=== PATIENT | male | born 1995 | race Hispanic/Latino ===

== ENCOUNTER 2016-04-20 13:18 | Emergency (ER) | payer OTHER ==
[~2016-04-20] VITALS: Ht 182.9 cm; Wt 84.2 kg
[~2016-04-20 13:18] MED LIST: ABILIFY10 MG PO; ABILIFY15 MG PO; AMOXICILLIN875 MG PO; CLONIDINE HCL0.1 MG PO; FOCALIN XR20 MG PO; FOCALIN5 MG; HYDROCODON-ACE1 EAC7 PO; NAPROSYN500 MG PO; NORCO 5/3251 TABLET PO
[2016-04-20 15:37] LABS: AMPHETAMINE NEGATIVE (500 ng/mL); BARBITURATES NEGATIVE (200 ng/mL); BENZODIAZEPINES NEGATIVE (150 ng/mL); COCAINE NEGATIVE (150 ng/mL); INTERNAL CONTROLS VALID? YES; METHADONE NEGATIVE (200 ng/mL); METHAMPHETAMINE NEGATIVE (500 ng/mL); OPIATES (MORPHINE) NEGATIVE (100 ng/mL); OXYCODONE NEGATIVE (100 ng/mL); PHENCYCLIDINE NEGATIVE (25 ng/mL); PROPOXYPHENE NEGATIVE (300 ng/mL); THC CANNABINOIDS PRESUMPTIVE POSITIVE (50 ng/mL); TRICYCLIC ANTIDEPRESSANTS NEGATIVE (300 ng/mL)
[2016-04-20 15:38] LABS: ADD MEDTOX COMMENT Y
[2016-04-20 15:40] LABS: HEMATOCRIT 46.5 % (38.0-50.0); MCH 29.4 PG (29.0-34.0); MCHC 35.5 G/DL (30.0-36.0); MCV 82.7 FL (86-99); MEAN PLAT.VOLUME 10.8 uM^3 (9.0-12.4); PLATELET COUNT 244 K/uL (156-360); RBC DIS.WIDTH-CV 11.7 % (11.8-14.6); RBC DIS.WIDTH-SD 34.6 % (39-53); RED BLOOD COUNT 5.62 M/uL (4.00-5.50); WHITE BLOOD COUNT 11.7 K/uL (4.1-10.2)
[2016-04-20 15:50] LABS: CHLORIDE 104 mEq/L (99-109); POTASSIUM 4.3 mEq/L (3.7-5.4); SODIUM 141 mEq/L (136-147)
[2016-04-20 15:52] LABS: GLUCOSE 96 mg/dL (70-99)
[2016-04-20 15:53] LABS: ANION GAP 8 MEQ/L (2-14)
[2016-04-20 15:55] LABS: SERUM ETHYL ALCOHOL < 10 mg/dL
[2016-04-20 15:56] LABS: GFR ESTIMATE (CALCULATED) > 59 mL/min/
[2016-04-20 15:57] LABS: UREA NITROGEN (BUN) 7 mg/dL (9-23)
[2016-04-20 20:57] VITALS: BP 134/82
== END 2016-04-20 21:00 ==
LOC: EME 13:18
DX: F32.9 Major depressive disorder, single episode, unspecified (principal); D72.829 Elevated white blood cell count, unspecified; S50.811A Abrasion of right forearm, initial encounter; X78.1XXA Intentional self-harm by knife, initial encounter; F12.10 Cannabis abuse, uncomplicated; Z87.442 Personal history of urinary calculi
CPT/HCPCS: 80048; 84999; 85027; 90837; 99281; 99285; G0480; J2405; J3010

== ENCOUNTER 2016-11-11 16:45 | Emergency (ER) | payer OTHER ==
[~2016-11-11] VITALS: Ht 182.9 cm; Wt 79.4 kg
[2016-11-11 17:31] LABS: EOSINOPHIL (%) 0.5 % (0-5); HEMATOCRIT 47.2 % (38.0-50.0); IMMATURE GRANULOCYTE (%) 0.2 % (0.0-0.7); INSTRUMENT ABS NEUTROPHIL CT 6.7 K/uL; LYMPHOCYTE COUNT 1.3 K/uL (1.0-2.8); MCH 28.9 PG (29.0-34.0); MCV 82.8 FL (86-99); MEAN PLAT.VOLUME 10.9 uM^3 (9.0-12.4); MONOCYTE (%) 6.7 % (3-12); MONOCYTE COUNT 0.6 K/uL (0-0.8); NEUTROPHIL (%) 77.1 % (45-76); NEUTROPHIL COUNT 6.7 K/uL (1.8-6.4); PLATELET COUNT 205 K/uL (156-360); RBC DIS.WIDTH-CV 11.7 % (11.8-14.6); RBC DIS.WIDTH-SD 35.1 % (39-53); WHITE BLOOD COUNT 8.7 K/uL (4.1-10.2)
[2016-11-11 17:39] LABS: CHLORIDE 103 mEq/L (99-109); POTASSIUM 3.7 mEq/L (3.7-5.4); SODIUM 141 mEq/L (136-147)
[2016-11-11 17:41] LABS: GLUCOSE 98 mg/dL (70-99)
[2016-11-11 17:42] LABS: ANION GAP 14 MEQ/L (2-14)
[2016-11-11 17:44] LABS: SERUM ETHYL ALCOHOL < 10 mg/dL
[2016-11-11 17:45] LABS: GFR ESTIMATE (CALCULATED) > 59 mL/min/
[2016-11-11 17:46] LABS: UREA NITROGEN (BUN) 7 mg/dL (9-23)
[2016-11-11 18:21] LABS: ADD MIUA? YES; BILIRUBIN SMALL; BLOOD SMALL; COLOR AMBER ((YELLOW)); GLUCOSE (STRIP) NEGATIVE; KETONES 5; LEUKOCYTES NEGATIVE; NITRITE NEGATIVE; PROTEIN (STRIP) 100; SPECIFIC GRAVITY 1.026 (1.000-1.030)
[2016-11-11 18:35] LABS: ADD MEDTOX COMMENT Y; AMPHETAMINE NEGATIVE (500 ng/mL); BARBITURATES NEGATIVE (200 ng/mL); BENZODIAZEPINES NEGATIVE (150 ng/mL); COCAINE NEGATIVE (150 ng/mL); INTERNAL CONTROLS VALID? YES; METHADONE NEGATIVE (200 ng/mL); METHAMPHETAMINE NEGATIVE (500 ng/mL); OPIATES (MORPHINE) NEGATIVE (100 ng/mL); OXYCODONE NEGATIVE (100 ng/mL); PHENCYCLIDINE NEGATIVE (25 ng/mL); PROPOXYPHENE NEGATIVE (300 ng/mL); THC CANNABINOIDS PRESUMPTIVE POSITIVE (50 ng/mL); TRICYCLIC ANTIDEPRESSANTS PRESUMPTIVE POSITIVE (300 ng/mL)
[2016-11-11 18:39] LABS: BACTERIA 3+ /HPF; EPITHELIAL CELLS RARE /HPF; HYALINE CASTS 20-30 /LPF; MUCUS 4+ /LPF; RED BLOOD CELLS 15-20 /HPF (0-5)
[2016-11-11] MEDS ORDERED: CIPRO500 MG PO (18:56)
[2016-11-11 19:47] VITALS: BP 124/103
== END 2016-11-11 19:51 | disposition home or self-care (01) ==
LOC: EME 16:45
PROVIDERS: Emergency Medicine
DX: F31.31 Bipolar disorder, current episode depressed, mild (principal); F41.9 Anxiety disorder, unspecified; N39.0 Urinary tract infection, site not specified; S50.811A Abrasion of right forearm, initial encounter; X78.1XXA Intentional self-harm by knife, initial encounter; F12.90 Cannabis use, unspecified, uncomplicated; F17.200 Nicotine dependence, unspecified, uncomplicated
CPT/HCPCS: 80048; 81003; 84999; 85025; 87086; 90839; 99281; 99285; G0480

== ENCOUNTER 2017-08-09 16:23 | Inpatient (IN) | payer OTHER ==
[~2017-08-09] VITALS: Ht 182.9 cm; Wt 66.8 kg
[~2017-08-09 16:23] MED LIST changes: +CIPRO500 MG PO
[2017-08-09 17:49] LABS: HEMATOCRIT 47.4 % (38.0-50.0); HEMOGLOBIN 16.4 G/DL (12.5-16.6); MCH 31.1 PG (29.0-34.0); MCHC 34.6 G/DL (30.0-36.0); MCV 89.9 FL (86-99); PLATELET COUNT 193 K/uL (156-360); RBC DIS.WIDTH-CV 12.4 % (11.8-14.6); RED BLOOD COUNT 5.27 M/uL (4.00-5.50); WHITE BLOOD COUNT 6.2 K/uL (4.1-10.2)
[2017-08-09 18:00] LABS: CHLORIDE 102 mEq/L (99-109); POTASSIUM 4.3 mEq/L (3.7-5.4); SODIUM 141 mEq/L (136-147)
[2017-08-09 18:02] LABS: GLUCOSE 77 mg/dL (70-99)
[2017-08-09 18:05] LABS: AMPHETAMINE NEGATIVE (500 ng/mL); BARBITURATES NEGATIVE (200 ng/mL); BENZODIAZEPINES NEGATIVE (150 ng/mL); BUPRENORPHINE NEGATIVE (10 ng/mL); COCAINE NEGATIVE (150 ng/mL); METHADONE NEGATIVE (200 ng/mL); METHAMPHETAMINE NEGATIVE (500 ng/mL); OPIATES (MORPHINE) NEGATIVE (100 ng/mL); OXYCODONE NEGATIVE (100 ng/mL); PHENCYCLIDINE NEGATIVE (25 ng/mL); PROPOXYPHENE NEGATIVE (300 ng/mL); THC CANNABINOIDS PRESUMPTIVE POSITIVE (50 ng/mL); TRICYCLIC ANTIDEPRESSANTS NEGATIVE (300 ng/mL)
[2017-08-09 18:05] LABS: SERUM ETHYL ALCOHOL < 10 mg/dL
[2017-08-09 18:06] LABS: CREATININE 0.9 mg/dL (0.6-1.3); GFR ESTIMATE (CALCULATED) > 59 mL/min/ (58.99-99999)
[2017-08-09 18:07] LABS: UREA NITROGEN (BUN) 9 mg/dL (9-23)
[2017-08-09] MEDS ORDERED: SEROQUEL400 MG PO (19:51)
[2017-08-09] MEDS ORDERED: FOCALIN XR30 MG PO (19:51)
[2017-08-09 21:40] VITALS: BP 138/86
[2017-08-09 21:53] VITALS: BP 138/86
[2017-08-10 08:05] VITALS: BP 112/63
[2017-08-10 16:20] VITALS: BP 116/57
[2017-08-11 08:24] VITALS: BP 108/60
[2017-08-11 15:22] VITALS: BP 136/73
[2017-08-12 08:07] VITALS: BP 112/63
[2017-08-12 17:05] VITALS: BP 130/91
[2017-08-13 07:45] VITALS: BP 110/58
[2017-08-13] MEDS ORDERED: QUETIAPINE FUM300 MG PO (13:41)
== END 2017-08-13 14:50 | disposition home or self-care (01) | DRG 885 ==
LOC: EME 16:23 → 1WEST 19:16 → EDOF 19:16 → ENRESERV 21:39 → 1WEST 21:39
PROVIDERS: Emergency Medicine
DX: F31.9 Bipolar disorder, unspecified (principal); F12.90 Cannabis use, unspecified, uncomplicated; F17.200 Nicotine dependence, unspecified, uncomplicated; R45.851 Suicidal ideations
CPT/HCPCS: 73130; 80048; 84999; 85027; 90839; 97150 GO; 97165 GO; 99281; 99285; G0480